=== PATIENT | male | born 1975 | race Caucasian/White ===

== ENCOUNTER 2018-06-30 22:28 | Emergency (ER) | payer OTHER ==
[~2018-06-30] VITALS: Ht 165.1 cm; Wt 75.0 kg
[2018-06-30 22:47] VITALS: BP 156/99
== END 2018-06-30 22:56 ==
LOC: ER 22:30
DX: F10.129 Alcohol abuse with intoxication, unspecified (principal); H55.09 Other forms of nystagmus; Z02.89 Encounter for other administrative examinations; Y90.9 Presence of alcohol in blood, level not specified; V29.9XXA Motorcycle rider (driver) (passenger) injured in unspecified traffic accident, initial encounter; Y93.I9 Activity, other involving external motion; Y92.89 Other specified places as the place of occurrence of the external cause; Y99.8 Other external cause status
CPT/HCPCS: 99285